=== PATIENT | male | born 1960 | race Caucasian/White ===

== ENCOUNTER → 2018-03-29 20:58 | Emergency (ER) | payer MEDICARE ==
[~2018-03-29 20:58] MED LIST: NS 0.9% 1000 ML* 2,000 ML IV ONE
[2018-03-29 22:17] LABS: ABS Basophils 0 10^3/ul (0-0.2); ABS Eosinophils 0.1 10^3/ul (0-0.6); ABS Lymphocytes 2.1 10^3/ul (1.0-4.8); ABS Monocytes 0.8 10^3/ul (0-0.8); ABS Neutrophils 9.9 10^3/ul (1.5-7.7); ABS Nucleated RBC 0 10^3/ul; Hematocrit 43 % (42-52); Hemoglobin 14.5 g/dl (14.0-18.0); Lymphocyte % 15.8 % (25-47); Mean Corpuscular HGB Conc 34 g/dl (31-36); Mean Corpuscular Hemoglobin 31 pg (27-31); Mean Corpuscular Volume 92 fL (80-94); Mean Platelet Volume 8.5 um3 (7.4-10.4); Nucleated Red Blood Cells % 0.1; Platelet Count 263 10^3/ul (150-450); Red Blood Count 4.62 10^6/ul (4.00-5.40); Red Cell Distribution Width 13 % (10.5-15)
[2018-03-29 22:28] LABS: INR 0.97 (0.77-1.02)
[2018-03-29 22:30] LABS: EGFR Non-African American 55.7 (>60)
--- NOTE | 2018-03-29 22:31 | ED ---
Syncope/Near Syncope - HPI Summary HPI Summary: This patient is a 57 year old M BIBA to [facility] after a near syncopal episode that occurred today during a parade. Pt was carrying a flag and after he walked for 15 minutes in the heat he felt weak, was diaphoretic, and leaned on a rail for support, but there was a LOC. Pt states he feels well now. The patient rates the pain 0/10 in severity. Symptoms alleviated by spontaneous resolution and rest. Patient reports dizziness and near syncope. - History Of Current Complaint Chief Complaint: EDSyncope Time Seen by Provider: 03/29/18 21:32 Hx Obtained From: Patient Onset/Duration: Lasting Minutes, Resolved Timing: Intermittent Episode Lasting Context: Witnessed Activity At Onset: Exertion Associated Head Trauma: No Alleviating Factor(s): Spontaneous Resolution Associated Signs And Symptoms: Diaphoresis, Dizzy - Allergies/Home Medications Allergies/Adverse Reactions: Allergies Allergy/AdvReac Type Severity Reaction Status Date / Time No Known Allergies Allergy Verified 10/08/16 16:20 Home Medications: Home Medications Topiramate 300 mg PO QPM 03/29/18 [History Confirmed 03/29/18] PMH/Surg Hx/FS Hx/Imm Hx Endocrine/Hematology History: Reports: Hx Thyroid Disease Cardiovascular History: Denies: Hx Coronary Artery Disease Respiratory History: Denies: Hx Chronic Obstructive Pulmonary Disease (COPD) History: Reports: Hx Kidney Stones Neurological History: Reports: Hx Seizures Psychiatric History: Reports: Hx Depression Infectious Disease History: No Infectious Disease History: Denies: Traveled Outside the [place] in Last 30 Days - Family History Known Family History: Positive: Seizure Disorder Negative: Respiratory Disease, Blood Disorder - Social History Alcohol Use: None Substance Use Type: Reports: None Smoking Status (MU): Never Smoked Tobacco Review of Systems Positive: Skin Diaphoresis Neurological: Other - dizzy Positive: Weakness, Syncope - near All Other Systems Reviewed And Are Negative: Yes Physical Exam - Summary Physical Exam Summary: VITAL SIGNS: Reviewed. GENERAL: Patient is a well-developed and nourished male who is lying comfortable in the stretcher. Patient is not in any acute respiratory distress. HEAD AND FACE: No signs of trauma. No ecchymosis, hematomas or skull depressions. No sinus tenderness. EYES: PERRLA, EOMI x 2, No injected conjunctiva, no nystagmus. EARS: Hearing grossly intact. Ear canals and tympanic membranes are within normal limits. MOUTH: Oropharynx within normal limits. NECK: Supple, trachea is midline, no adenopathy, no JVD, no carotid bruit, no c- spine tenderness, neck with full ROM. CHEST: Symmetric, no tenderness at palpation LUNGS: Clear to auscultation bilaterally. No wheezing or crackles. CVS: Regular rate and rhythm, S1 and S2 present, no murmurs or gallops appreciated. ABDOMEN: Soft, non-tender. No signs of distention. No rebound no guarding, and no masses palpated. Bowel sounds are normal. EXTREMITIES: FROM in all major joints, no edema, no cyanosis or clubbing. NEURO: Alert and oriented x 3. No acute neurological deficits. Speech is normal and follows commands. SKIN: Dry and warm Triage Information Reviewed: Yes Vital Signs On Initial Exam: Initial Vitals Pulse Resp Pulse Ox 70 24 97 03/29/18 21:06 03/29/18 21:06 03/29/18 21:06 Vital Signs Reviewed: Yes Diagnostics - Vital Signs Vital Signs Temp Pulse Resp BP Pulse Ox 03/29/18 22:07 63 13 120/68 95 03/29/18 22:00 64 18 98 03/29/18 21:38 70 12 144/78 98 03/29/18 21:15 97.3 F 66 16 119/70 97 03/29/18 21:08 68 19 119/70 96 03/29/18 21:06 70 24 97 - Laboratory Lab Results: Lab Results 03/29/18 Range/Units 22:00 WBC 13.0 H (3.5-10.8) 10^3/ul RBC 4.62 (4.00-5.40) 10^6/ul Hgb 14.5 (14.0-18.0) g/dl Hct 43 (42-52) % MCV 92 (80-94) fL MCH 31 (27-31) pg MCHC 34 (31-36) g/dl RDW 13 (10.5-15) % Plt Count 263 (150-450) 10^3/ul MPV 8.5 (7.4-10.4) um3 Neut % (Auto) 76.4 (38-83) % Lymph % (Auto) 15.8 L (25-47) % Love % (Auto) 6.5 (0-7) % Eos % (Auto) 1.0 (0-6) % Baso % (Auto) 0.3 (0-2) % Absolute Neuts (auto) 9.9 H (1.5-7.7) 10^3/ul Absolute Lymphs (auto) 2.1 (1.0-4.8) 10^3/ul Absolute Monos (auto) 0.8 (0-0.8) 10^3/ul Absolute Eos (auto) 0.1 (0-0.6) 10^3/ul Absolute Basos (auto) 0 (0-0.2) 10^3/ul Absolute Nucleated RBC 0 10^3/ul Nucleated RBC % 0.1 Result Diagrams: 03/29/18 22:00 03/29/18 22:00 Lab Statement: Any lab studies that have been ordered have been reviewed, and results considered in the medical decision making process. - EKG 22:06 Cardiac Rate: NL EKG Rhythm: Sinus Rhythm - at 63 BPM EKG Interpretation: RBBB, 1st degree AV block. Course/Dx Assessment/Plan: This patient is a 57 year old M BIBA to [facility] after a near syncopal episode that occurred today during a parade. Pt was carrying a flag and after he walked for 15 minutes in the heat he felt weak, was diaphoretic, and leaned on a rail for support, but there was a LOC. Pt states he feels well now. The patient rates the pain 0/10 in severity. Symptoms alleviated by spontaneous resolution and rest. Patient reports dizziness and near syncope. An EKG reveals sinus RBBb 1st degree AV block. Blood work obtained. Dx pre syncope heat exhaustion. In the ED course the patient was given IV fluids. Patient will be discharged and f/u with PCP. The patient is agreeable with this plan. - Diagnoses Provider Diagnoses: Pre-syncope, Heat exhaustion Discharge - Sign-Out/Discharge Documenting (check all that apply): Patient Departure - Discharge Plan Condition: Stable Disposition: HOME Patient Education Materials: Heat Exhaustion (ED), Near Syncope (ED) Referrals: German Pabon MD [Primary Care Provider] - 2 Days Additional Instructions: RETURN TO THE EMERGENCY DEPARTMENT FOR CHANGING OR WORSENING SYMPTOMS. FOLLOW UP WITH PCP IN 1-2 DAYS. - Attestation Statements Document Initiated by Scribe: Yes Documenting Scribe: Suleiman King Provider For Whom Scribe is Documenting (Include Credential): Barney Tomlinson MD Scribe Attestation: ISuleiman , scribed for Barney Tomlinson MD on 03/29/18 at 2424.
[2018-03-30 00:03] VITALS: BP 110/76
== END | disposition home or self-care (01) ==
LOC: ED 20:58
DX: R55 Syncope and collapse (principal); T67.5XXA Heat exhaustion, unspecified, initial encounter; X30.XXXA Exposure to excessive natural heat, initial encounter; Y93.01 Activity, walking, marching and hiking; Y92.9 Unspecified place or not applicable; R61 Generalized hyperhidrosis; I44.0 Atrioventricular block, first degree; R56.9 Unspecified convulsions
CPT/HCPCS: 36415; 80053; 80185; 82550; 83605; 83735; 84443; 84484; 85025; 85610; 85730; 93005; 96360; 96361; 99283

== ENCOUNTER 2018-11-02 16:08 | Emergency (ER) | payer MEDICARE ==
--- OUTSIDE RECORDS SUMMARY | 2018-11-02 16:42 | XMS REPORT | Continuity of Care Document ---
:1960 External Reference #:[id number] Author Name Amalia Barber Care Team Providers Name Role Phone Thelma Pabon M.D. 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 Ahuja MD Active complex partial seizures Family History Date Family Member(s) Observation Comments Father Cancer Father Heart Disease Mother Chronic Obstructive Pulmonary Disease (COPD) passed January 2014 Social History Type Date Description Comments Sex Unknown ETOH Use Denies alcohol use quit in the Tobacco Use Start: Unknown Patient has never smoked Smoking Status Reviewed: 10/31/18 Patient has never smoked Allergies, Adverse Reactions, Alerts Date Description Reaction Status Severity Comments 10/31/2018 Phenobarbital Active Moderate 12/23/2015 NKDA Inactive Medications Medication Date Status Form Strength Qnty SIG Indications Ordering Provider Hydrocodone 10/31/ Active Tablets 5-325mg 30tab 1 po bid R51 Chris Lopez. Bitartrate/Acet 2019 s rocio Kendall aminophen headache M.Jazmyn Vitamin D 01/14/ Active Tablets 1000Unit 180ta take 1 E55.9 Judson Garvin bs once a MD day Keppra XR 05/06/ Active Tablets ER 500mg 720ta 4 by John 2015 24HR bs mouth Jeffry Cintron twice a day Levothyroxine / Active Tablets 137mcg 1 by Unknown Sodium 0000 mouth every day Sertraline HCL / Active Tablets 50mg 1/2 tab Unknown 0000 by mouth every day Topamax / Active Tablets 100mg 135ta 1 /2 in [place] 0000 bs in the Jeffry Cintron morning by mouth , 1 tab at night Topamax / Active Tablets 200mg 180ta 1 by [place] 0000 bs mouth Jeffry Cintron twice a day Dilantin / Active Capsules 100mg 360ca 2 in in Alan 0000 ps the MD Ezra morning, 2 at at bedtime B-12 / Active Tablets 1000mcg 1 by Unknown (Methylcobalami 0000 Sub mouth n) every day Aspirin / Active Tablets 81mg 1 by Unknown 0000 mouth every day Naproxen / Active Tablets 500mg 1 by Unknown 0000 mouth twice a day Nexium / Active prn Unknown 0000 Butalbital/Acet 10/31/ Hx Capsules 50-300-40 30cap 1 by R5Jaylen Del Toro aminonorah/Caffe 2019 - mg s mouth olive Kendall 10/31/ twice a M.DRaffaele 2018 day as needed headache max 2 days/wk Keppra / Hx Tablets 500mg 720ta 4 tab by Laura Ahuja 0000 - bs jesus ESPARZA 05/06/ twice a 2015 day Immunizations Description No Information Available Vital Signs Date Vital Result Comment 10/31/2018 9:25am Height 68.5 inches 5'8.50" Weight 215.00 lb Heart Rate 74 /min BP Systolic 138 mmHg BP Diastolic 78 mmHg BMI (Body Mass Index) 32.2 kg/m2 01/14/2018 11:09am Height 68.5 inches 5'8.50" Weight 239.25 lb Heart Rate 72 /min BP Systolic 138 mmHg BP Diastolic 90 mmHg BMI (Body Mass Index) 35.8 kg/m2 12/21/2016 10:26am Height 68.5 inches 5'8.50" Weight 235.00 lb Heart Rate 72 /min BP Systolic Sitting 130 mmHg BP Diastolic Sitting 92 mmHg Respiratory Rate 17 /min BMI (Body Mass Index) 35.2 kg/m2 12/23/2015 11:04am Height 68.5 inches 5'8.50" Weight 235.00 lb Heart Rate 84 /min BP Systolic Sitting 130 mmHg BP Diastolic Sitting 84 mmHg Respiratory Rate 18 /min BMI (Body Mass Index) 35.2 kg/m2 Results Test Date Facility Test Result H/L Range Note CBC Auto Diff 12/31/2016 [facility] [facility] White Blood 9.1 10^3/uL N 3.5-10.[address] [place] [address] [phone] Red Blood Count 4.76 10^6/uL N 4.0-5.4 Hemoglobin 14.7 g/dL N 14.0-18.0 Hematocrit 45 % N 42-52 Mean Corpuscular Volume 95 fL High 80-94 Mean Corpuscular Hemoglobin 31 pg N 27-31 Mean Corpuscular HGB Conc 33 g/dL N 31-36 Red Cell Distribution Width 14 % N 10.5-15 Platelet Count 285 10^3/uL N 150-450 Mean Platelet Volume 9 um3 N 7.4-10.4 Abs Neutrophils 5.3 10^3/uL N 1.5-7.7 Abs Lymphocytes 3.0 10^3/uL N 1.0-4.8 Abs Monocytes 0.6 10^3/uL N 0-0.8 Abs Eosinophils 0.2 10^3/uL N 0-0.6 Abs Basophils 0.1 10^3/uL N 0-0.2 Abs Nucleated RBC 0 10^3/uL N Granulocyte % 58.1 % N 38-83 Lymphocyte % 33.0 % N 25-47 Monocyte % 6.4 % N 1-9 Eosinophil % 1.8 % N 0-6 Basophil % 0.7 % N 0-2 Nucleated Red Blood Cells % 0 N Laboratory test 12/31/2016 [facility] [facility] Hemoglobin A1c 5.4 % N Less than [address] (Glyco HGB) 6.0 [place] [address] [phone] Comp Metabolic 12/31/2016 [facility] Sodium 142 N 133-[address] mmol/[place] [address] [phone] Potassium 4.2 mmol/L N 3.5-5.0 Chloride 107 mmol/L N 101-111 Co2 Carbon Dioxide 25 mmol/L N 22-32 Anion Gap 10 mmol/L N 2-11 Glucose 103 mg/dL High 70-100 Blood Urea Nitrogen 12 mg/dL N 6-24 Creatinine 1.12 mg/dL N 0.67-1.17 BUN/Creatinine Ratio 10.7 N 8-20 Calcium 9.5 mg/dL N 8.6-10.3 Total Protein 7.7 g/dL N 6.4-8.9 Albumin 4.5 g/dL N 3.2-5.2 Globulin 3.2 g/dL N 2-4 Albumin/Globulin Ratio 1.4 N 1-3 Total Bilirubin 0.40 mg/dL N 0.2-1.0 Alkaline Phosphatase 114 U/L High 34-104 Alt 25 U/L N 7-52 Ast 16 U/L N 13-39 Egfr Non- 67.6 N >60 Egfr 86.9 N >60 3 Laboratory test 12/31/2016 [facility] [facility] TSH (Thyroid 5.46 mcIU/mL N 0.34-5.60 [address] Stim [place]) [place] [address] [phone] PSA Screening 1.434 ng/mL N 0-4.000 5 Vitamin D Total 25(Oh) 27.9 ng/mL Low 30-50 6 Comp Metabolic Panel 12/31/2015 [facility] Sodium 139 mmol/L N 133-[address] [place] [address] [phone] Potassium 4.2 mmol/L N 3.5-5.0 Chloride 107 mmol/L N 101-111 Co2 Carbon Dioxide 27 mmol/L N 22-32 Anion Gap 5 mmol/L N 2-11 Glucose 125 mg/dL High 70-100 Blood Urea Nitrogen 11 mg/dL N 6-24 Creatinine 1.07 mg/dL N 0.67-1.17 BUN/Creatinine Ratio 10.3 N 8-20 Calcium 9.3 mg/dL N 8.6-10.3 Total Protein 7.4 g/dL N 6.4-8.9 Albumin 4.4 g/dL N 3.2-5.2 Globulin 3.0 g/dL N 2-4 Albumin/Globulin Ratio 1.5 N 1-3 Total Bilirubin 0.30 mg/dL N 0.2-1.0 Alkaline Phosphatase 114 U/L High 34-104 Alt 33 U/L N 7-52 Ast 17 U/L N 13-39 Egfr Non- 71.5 N >60 Egfr 91.9 N >60 7 CBC Auto Diff 12/31/2015 [facility] [facility] White Blood 7.7 10^3/uL N 3.5-10.[address] [place] [address] [phone] Red Blood Count 4.69 10^6/uL N 4.0-5.4 Hemoglobin 14.7 g/dL N 14.0-18.0 Hematocrit 44 % N 42-52 Mean Corpuscular Volume 93 fL N 80-94 Mean Corpuscular Hemoglobin 31 pg N 27-31 Mean Corpuscular HGB Conc 34 g/dL N 31-36 Red Cell Distribution Width 13 % N 10.5-15 Platelet Count 263 10^3/uL N 150-450 Mean Platelet Volume 9 um3 N 7.4-10.4 Abs Neutrophils 4.6 10^3/uL N 1.5-7.7 Abs Lymphocytes 2.4 10^3/uL N 1.0-4.8 Abs Monocytes 0.5 10^3/uL N 0-0.8 Abs Eosinophils 0.1 10^3/uL N 0-0.6 Abs Basophils 0.1 10^3/uL N 0-0.2 Abs Nucleated RBC 0.01 10^3/uL N Granulocyte % 60.4 % N 38-83 Lymphocyte % 30.9 % N 25-47 Monocyte % 6.1 % N 1-9 Eosinophil % 1.9 % N 0-6 Basophil % 0.7 % N 0-2 Nucleated Red Blood Cells % 0.1 N Laboratory test 12/31/2015 [facility] [facility] Phenytoin 9.2 g/mL Low 10-[address] (Dilantin) [place] [address] [phone] Levetiracetam (Keppra) 30.2 g/mL N 9 Topomax (Topiramate) 8.0 g/mL N 2.0 - 8.0 10 Lipid Profile 12/31/2015 [facility] [facility] Triglycerides 336 mg/dL N 11 (Trig/Chol/HDL) [address] [place] [address] [phone] Cholesterol 206 mg/dL N 12 HDL Cholesterol 31.5 mg/dL N 13 LDL Cholesterol 107 mg/dL N 14 1 [id number] 2 Therapeutic target for the treatment of diabetes Mellitus patients is <7% HBA1C, and in selective patients <6.0%.Please refer to [place] [employer] Association Diabetic care guidelines for further information. 3 Because ethnic data is not always readily available, this report includes an eGFR for both -Americans and non- Americans. The National Kidney Disease Education Program (NKDEP) does not endorse the use of the MDRD equation for patients that are not between the ages of 18 and 70, are , have extremes of body size, muscle mass, or nutritional status, or are non- or non-. According to the National Kidney Foundation, irrespective of diagnosis, the stage of the disease is based on the level of kidney function: Stage Description GFR(mL/min/1.73 m(2)) 1 Kidney damage with normal or decreased GFR 90 2 Kidney damage with mild decrease in GFR 60-89 3 Moderate decrease in GFR 30-59 4 Severe decrease in GFR 15-29 5 Kidney failure <15 (or dialysis) 4 [id number] 5 Serum levels of PSA measured using the [employer] DXI Hybritech immunoassay should not be interpreted as absolute evidence of the presence or absence of disease. The PSA value should be used in conjunction with other pertinent clinical diagnostic procedures. The values obtained with different assay methods or kits cannot be used interchangeably. 6 [id number] 7 Because ethnic data is not always readily available, this report includes an eGFR for both -Americans and non- Americans. The National Kidney Disease Education Program (NKDEP) does not endorse the use of the MDRD equation for patients that are not between the ages of 18 and 70, are , have extremes of body size, muscle mass, or nutritional status, or are non- or non-. According to the National Kidney Foundation, irrespective of diagnosis, the stage of the disease is based on the level of kidney function: Stage Description GFR(mL/min/1.73 m(2)) 1 Kidney damage with normal or decreased GFR 90 2 Kidney damage with mild decrease in GFR 60-89 3 Moderate decrease in GFR 30-59 4 Severe decrease in GFR 15-29 5 Kidney failure <15 (or dialysis) 8 Draw prior to AM dose of medication Copy Result to: THELMA PABON ([id number]) FASTING 9 REFERENCE VALUE 12.0 - 46.0 Test Performed by: [facility] [place] [id number] [employer] Sales Representative: Cosmo Evans II, M.D., Ph.D. 10 Test Performed by: [facility] - [address] [address] [employer] Sales Representative: Cosmo Evans II, M.D., Ph.D. 11 Desirable <150 Borderline high 150-199 High 200-499 Very High >500 12 Desirable <200 Borderline high 200-239 High >239 13 Low <40 Desirable: 40-60 High: >60 14 Desirable: <100 mg/dL Near Optimal: 100-129 mg/dL Borderline High: 130-159 mg/dL High: 160-189 mg/dL Very High: >189 mg/dL Procedures Date Code Description Status 12/31/2015 01019 EEG Recording Awake & Drowsy Completed Encounters Type Date Location Provider Dx Diagnosis Office Visit 01/14/2018 [facility] Laura Ahuja MD G40.219 Local-rel 11:00a symptc epi w cmplx part seiz, ntrct, w/o stat epi E55.9 Vitamin D deficiency, unspecified Office Visit 12/21/2016 [facility] Laura Ahuja MD G40.219 Local- rel symptc 10:30a [employer] epi w cmplx part seiz, ntrct, w/o stat epi Office Visit 12/23/2015 [facility] Laura Ahuja MD G40.219 Local- rel symptc 11:00a [employer] epi w cmplx part seiz, ntrct, w/o stat epi [facility] Poisoning By 3:00a ulises Boss M.D. [facility] Office Visit 11/23/2008 [facility] Vernon Jack, 966.1 Poisoning By 2:45a ulises Boss M.D. [facility] Office Visit 11/22/2008 [facility] Mandy RamirezKaterin, 966.1 Poisoning By 2:15a [employer],ulises Teran [facility] Office Visit 11/21/2008 [facility] Mandy RamirezKaterin, 966.1 Poisoning By 2:00a ulises Boss M.D. [facility] Office Visit 11/20/2008 [facility] Mandy RamirezKaterin, 966.1 Poisoning By 3:15a ulises Boss M.D. [facility] Office Visit 11/19/2008 [facility] Magaly Conroy, 966.1 Poisoning By 1:15a ulises Boss M.D. [facility] Plan of Treatment Future Appointment(s):11/18/2018 4:00 pm - [facility] [id number]/31/2018 - Chris Kendall M.D.R51 HeadacheNew Medication:Hydrocodone Bitartrate/Acetaminophen 5-325 mg - 1 po bid prn headacheButalbital/Acetaminophen/Caffeine 50-300-40 mg - 1 by mouth twice a day as needed headache max 2 days/wkNew Xrays:Mra Head W/O, Ordered: 10/31/18MRI Brain W/Wo, Ordered: 10/31/18Follow up:get CT brain report and lab results from Pipo GONGORA and Dr. Pabon 2 wks after MRI'sG40.219 Localization-related (focal ) (partial) symptomatic donphjppM08.01 Abnormal electroencephalogram [EEG]
--- NOTE | 2018-11-02 17:03 | ED ---
Headache - HPI Summary HPI Summary: A 58 y/o M presents to ED with c/o frontal JIMENEZ that radiates across his head that has been ongoing for the past 4 weeks. They wake him from sleep and are worse in the morning. The JIMENEZ eases up during the day but is always present. Associated sx: abd pain, recent weight loss, UE weakness described as feeling like rubber bands. Denies vision changes. He has been evaluated at [facility], and by Dr. Kendall, neuro. Nothing is alleviating the pain. He denies PMHx of migraines, JIMENEZ, HTN, DM. PMHx: epilepsy as a child. He got new glasses last week. No longer drinks ETOH and was never a heavy drinker. Pt lives alone in a trailer. He has a monoxide monitor. - History Of Current Complaint Chief Complaint: EDHeadache Stated Complaint: HEADACHE, ABD PAIN PER PT Time Seen by Provider: 11/02/18 17:02 Hx Obtained From: Patient Onset/Duration: Started weeks ago, Still Present Currently Pain Is: Current Pain Scale(0-10)= - 9 out of 10 Timing: Constant Location of Headache: Frontal Radiates to: rest of head Associated Signs And Symptoms: Other (Noted In Comments) - pos: abd pain, recent weight loss, UE weakness. neg: vision changes - Allergies/Home Medications Allergies/Adverse Reactions: Allergies Allergy/AdvReac Type Severity Reaction Status Date / Time phenobarbital Allergy WARM Verified 11/04/18 17:23 BUTTOCKS PMH/Surg Hx/FS Hx/Imm Hx Previously Healthy: No Endocrine/Hematology History: Reports: Hx Thyroid Disease Denies: Hx Diabetes Cardiovascular History: Denies: Hx Coronary Artery Disease, Hx Hypertension, Hx Pacemaker/ICD Respiratory History: Denies: Hx Chronic Obstructive Pulmonary Disease (COPD) History: Reports: Hx Kidney Stones Denies: Hx Renal Disease Sensory History: Denies: Hx Hearing Aid Neurological History: Reports: Hx Seizures Psychiatric History: Reports: Hx Depression Denies: Hx Panic Disorder - Surgical History Surgery Procedure, Year, and Place: head sx when AGE 20-CYST DRAINED Infectious Disease History: No Infectious Disease History: Denies: Traveled Outside the [place] in Last 30 Days - Family History Known Family History: Positive: Seizure Disorder Negative: Respiratory Disease, Blood Disorder - Social History Occupation: Unemployed Lives: Alone Alcohol Use: None Hx Substance Use: No Substance Use Type: Reports: None Hx Tobacco Use: No Smoking Status (MU): Never Smoked Tobacco Review of Systems Positive: Other - pos: recent weight loss Positive: Abdominal Pain Positive: Headache, Weakness - UE bilat All Other Systems Reviewed And Are Negative: Yes Physical Exam - Summary Physical Exam Summary: Appearance: Well-appearing, Well-nourished, lying in bed comfortably Skin: Warm, dry, no obvious rash Eyes: sclera anicteric, no conjunctival pallor ENT: mucous membranes moist, pharynx appears normal Neck: Supple, nontender Respiratory: Clear to auscultation, no signs of respiratory distress Cardiovascular: Normal S1, S2. No murmurs. Normal distal pulses in tibial and radial bilaterally. Abdomen: Soft, nontender, normal active bowel sounds present Musculoskeletal: Normal, Strength/ROM Intact Neurological: A&Ox3, awake and alert, mentation is normal, speech is fluent and appropriate Psychiatric: affect is normal, does not appear anxious or depressed Triage Information Reviewed: Yes Vital Signs On Initial Exam: Initial Vitals Temp Pulse Resp BP Pulse Ox 98.1 F 74 16 126/88 98 11/02/18 16:25 11/02/18 16:25 11/02/18 16:25 11/02/18 16:25 11/02/18 16:25 Vital Signs Reviewed: Yes Diagnostics - Vital Signs Vital Signs Temp Pulse Resp BP Pulse Ox 11/02/18 16:25 98.1 F 74 16 126/88 98 - Laboratory Lab Statement: Any lab studies that have been ordered have been reviewed, and results considered in the medical decision making process. Re-Evaluation - Re-Evaluation 1 Re-Evaluation Time: 17:30 Headache Course/Dx - Course Course Of Treatment: Pt is a 58 y/o M present with frontal JIMENEZ that radiates across his head that has been ongoing for the past 4 weeks. They wake him from sleep and are worse in the morning. Will discharge pt home. - Diagnoses Differential Diagnosis/HQI/PQRI: CO2 Poisoning, Subdural Hematoma, Subarachnoid Hemorrhage, Tension Headache Provider Diagnoses: Chronic headache - Physician Notifications Discussed Care Of Patient With: Chris Kendall - neuro Time Discussed With Above Provider: 17:22 Instructed by Provider To: Other - Discussed case, recommends pain management Discharge - Sign-Out/Discharge Documenting (check all that apply): Patient Departure - DC Patient Received Moderate/Deep Sedation with Procedure: No - Discharge Plan Condition: Good Disposition: HOME Prescriptions: Naproxen [Naprosyn 500 mg tab] 500 mg PO BEDTIME #20 tablet Patient Education Materials: Tension Headache (ED) Referrals: Chris Kendall MD [Medical Doctor] - (as scheduled) Additional Instructions: Your MR scans were normal per the radiologist, which rules out structural problems like tumors, infections or inflammation in the brain. 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 - Billing Disposition and Condition Condition: GOOD Disposition: Home - Attestation Statements Document Initiated by Valenteibe: Yes Documenting Scribe: Juan Dobbins Provider For Whom Silvia is Documenting (Include Credential): Dr. Emre Torres MD Scribe Attestation: Juan Chaudhary, scribed for Dr. Emre Torres MD on 11/05/18 at 0637. Scribe Documentation Reviewed: Yes Provider Attestation: The documentation as recorded by the Juan reeves accurately reflects the service I personally performed and the decisions made by me, Dr. Emre Torres MD Status of Scribe Document: Viewed
[2018-11-02 19:45] VITALS: BP 126/88
== END 2018-11-02 19:43 | disposition home or self-care (01) ==
LOC: ED 16:08
DX: R51 Headache (principal); G89.29 Other chronic pain; E07.9 Disorder of thyroid, unspecified; Z88.8 Allergy status to other drugs, medicaments and biological substances; Z87.442 Personal history of urinary calculi; G93.89 Other specified disorders of brain; J32.9 Chronic sinusitis, unspecified; D33.0 Benign neoplasm of brain, supratentorial
CPT/HCPCS: 70544; 70553; 99282; A9579

== ENCOUNTER 2018-11-04 17:13 | Emergency (ER) | payer MEDICARE ==
[2018-11-04] MEDS ORDERED: PROCHLORPERAZINE INJ 5 MG/ML 2 ML VIAL IV ONE (19:42)
[2018-11-04] MEDS ORDERED: Ketorolac INJ* 30 MG/ML 1 ML VIAL IV PUSH ONE (19:42)
[2018-11-04] MEDS ORDERED: NS 0.9% 1000 ML** 2,000 ML IV ONE (19:43)
[2018-11-04] MEDS ORDERED: diPHENhydraMINE IV* 50 MG/ML 1 ml VIAL (BENADRYL) IV ONE (19:43)
--- NOTE | 2018-11-04 19:48 | ED ---
Headache - HPI Summary HPI Summary: The patient is a 58 y/o M presenting to [facility] with a chief complaint of excruciating headache starting this morning at 0200. He states that the headache had a sudden onset in the bilateral frontal region and has gradually gotten worse throughout the day. He has a prescription from Dr. Kendall, neurology, for Sumatriptan and Zofran for chronic headaches; the medications seemed to mildly alleviate the pain, but he wasn't able to take them until 1200. Since then, he has also experienced diffuse abd soreness that is only present with the headache. There is associated nausea without vomiting. The pain was also aggravated by sitting passenger in the car on this way to the ED. Currently, the sharp pain is rated 9/10 in severity. He denies past abd surgeries. Last seen here two days ago with negative MRI scan. - History Of Current Complaint Chief Complaint: EDGeneral Stated Complaint: HEAD AND ABD PAIN PER PT Time Seen by Provider: 11/04/18 19:37 Hx Obtained From: Patient Onset/Duration: Sudden Onset, Started hours ago - at 0200 this morning, Still Present Initially Headache Was: Mild Currently Pain Is: Current Pain Scale(0-10)= - 9, Severe Timing: Hours Character: Sharp Location of Headache: Frontal - bilateral Aggravating Factor: Other - driving in car Allevating Factors: Medication - Sumatriptan and Zofran Associated Signs And Symptoms: Nausea, Other (Noted In Comments) - POSITIVE: diffuse abd soreness; NEGATIVE: vomiting - Allergies/Home Medications Allergies/Adverse Reactions: Allergies Allergy/AdvReac Type Severity Reaction Status Date / Time phenobarbital Allergy WARM Verified 11/04/18 17:23 BUTTOCKS Home Medications: Home Medications Ondansetron ODT TAB* [Zofran 4 MG Odt TAB*] 4 mg PO Q8H PRN 11/04/18 [History Confirmed 11/04/18] SUMAtriptan TAB* [Imitrex TAB*] 100 mg PO SEE INSTRUCTIONS 11/04/18 [History Confirmed 11/04/18] Topiramate TAB(*) [Topamax 100 mg tab] 300 mg PO BEDTIME 11/04/18 [History Confirmed 11/04/18] PMH/Surg Hx/FS Hx/Imm Hx Endocrine/Hematology History: Reports: Hx Thyroid Disease Denies: Hx Diabetes Cardiovascular History: Denies: Hx Coronary Artery Disease, Hx Hypertension, Hx Pacemaker/ICD Respiratory History: Denies: Hx Chronic Obstructive Pulmonary Disease (COPD) History: Reports: Hx Kidney Stones Denies: Hx Renal Disease Sensory History: Denies: Hx Hearing Aid Neurological History: Reports: Hx Seizures Psychiatric History: Reports: Hx Depression Denies: Hx Panic Disorder - Surgical History Surgery Procedure, Year, and Place: head sx when AGE 20-CYST DRAINED Infectious Disease History: No Infectious Disease History: Denies: Traveled Outside the [place] in Last 30 Days - Family History Known Family History: Positive: Seizure Disorder Negative: Respiratory Disease, Blood Disorder - Social History Alcohol Use: None Hx Substance Use: No Substance Use Type: Reports: None Hx Tobacco Use: No Smoking Status (MU): Never Smoked Tobacco Review of Systems Positive: Abdominal Pain - diffuse soreness onset with headaches, Nausea. Negative: Vomiting Positive: Headache - "excruciating", bilateral frontal All Other Systems Reviewed And Are Negative: Yes Physical Exam - Summary Physical Exam Summary: Appearance: Well-appearing, Well-nourished, lying in bed comfortably Skin: Warm, dry, no obvious rash Eyes: sclera anicteric, no conjunctival pallor ENT: mucous membranes moist, pharynx appears normal Neck: Supple, nontender Respiratory: Clear to auscultation, no signs of respiratory distress Cardiovascular: Normal S1, S2. No murmurs. Normal distal pulses in tibial and radial bilaterally. Abdomen: Soft, nontender, normal active bowel sounds present Musculoskeletal: Normal, Strength/ROM Intact Neurological: A&Ox3, awake and alert, mentation is normal, speech is fluent and appropriate Psychiatric: affect is normal, does not appear anxious or depressed Triage Information Reviewed: Yes Vital Signs On Initial Exam: Initial Vitals Temp Pulse Resp BP Pulse Ox 97.3 F 69 16 129/79 96 11/04/18 17:18 11/04/18 17:18 11/04/18 17:18 11/04/18 17:18 11/04/18 17:18 Vital Signs Reviewed: Yes Diagnostics - Vital Signs Vital Signs Temp Pulse Resp BP Pulse Ox 11/04/18 18:29 97.8 F 72 16 133/76 95 11/04/18 17:18 97.3 F 69 16 129/79 96 - Laboratory Result Diagrams: 11/04/18 19:53 11/04/18 19:53 Lab Statement: Any lab studies that have been ordered have been reviewed, and results considered in the medical decision making process. Re-Evaluation - Re-Evaluation First Eval Re-Evaluation Time: 22:00 Change: Improved Comment: I spoke with the patient concerning discharge after workup has been completed. He agrees with this plan as he feels better now. Headache Course/Dx - Course Course Of Treatment: The patient is a 58 y/o M with a chief complaint of excruciating frontal headache with sudden onset this morning at 0200 with gradual worsening throughout the day. He took Sumatriptan and Zofran at 1200 to mild relief. He additionally c/o diffuse abd soreness and nausea without vomiting associated with the headache. No abd surgical hx. Upon physical exam, the patient exhibits no acute abnormalities. In the ED course, the patient was administered Ns, Benadryl, Compazine, and Toradol. Blood work reveals slightly elevated MCH, chloride, and glucose but is otherwise normal; hemolyzed potassium. UA not obtained. The patient is diagnosed with acute headache. He will be discharged home with prescription for Compazine, instructions for Sumatriptan use, and follow up with Dr. Kendall as needed. He agrees with this plan and understands the need for return to the ED for any new or worsening symptoms. - Diagnoses Provider Diagnoses: Acute headache Discharge - Sign-Out/Discharge Documenting (check all that apply): Patient Departure - Patient will be discharged home. Patient Received Moderate/Deep Sedation with Procedure: No - Discharge Plan Condition: Good Disposition: HOME Prescriptions: Prochlorperazine TAB* [Compazine Tab*] 10 mg PO Q6H PRN #20 tab PRN Reason: Headache Patient Education Materials: Acute Headache (ED) Referrals: Chris Kendall MD [Medical Doctor] - (as scheduled) Additional Instructions: The sumatriptan works best the earlier in the course of a headache it is taken. If that proves ineffective, take the compazine next. [facility] should be able to help you with an acute intractable headache if that is more convenient for you than coming [place] [facility] Follow up with your primary care provider in 2-3 days. RETURN TO THE EMERGENCY DEPARTMENT FOR ANY NEW OR WORSENING SYMPTOMS. - Billing Disposition and Condition Condition: GOOD Disposition: Home - Attestation Statements Document Initiated by Scribe: Yes Documenting Scribe: Kim Garcia Provider For Whom Valenteiblloyd is Documenting (Include Credential): Dr. Emre Torres MD Scribe Attestation: I, chris Mcdermotted for Dr. Emre Torres MD on 11/05/18 at 0650. Scribe Documentation Reviewed: Yes Provider Attestation: The documentation as recorded by the Kim reeves accurately reflects the service I personally performed and the decisions made by me, Dr. Emre Torres MD Status of Scribe Document: Viewed
[2018-11-04 20:00] LABS: ABS Basophils 0.1 10^3/ul (0-0.2); ABS Eosinophils 0.2 10^3/ul (0-0.6); ABS Monocytes 0.6 10^3/ul (0-0.8); ABS Neutrophils 5.6 10^3/ul (1.5-7.7); ABS Nucleated RBC 0 10^3/ul; Eosinophil % 2.5 %; Hematocrit 40 % (36-46); Hemoglobin 14.1 g/dL (14.0-18.0); Lymphocyte % 31.7 %; Mean Corpuscular HGB Conc 35 g/dL (31-36); Mean Corpuscular Hemoglobin 32 pg (27-31); Mean Corpuscular Volume 92 fL (80-94); Mean Platelet Volume 8.3 fL (7.4-10.4); Nucleated Red Blood Cells % 0; Platelet Count 279 10^3/uL (150-450); Red Blood Count 4.35 10^6 /uL (4.18-5.48); Red Cell Distribution Width 13 % (10.5-15); White Blood Count 9.5 10^3/uL (3.5-10.8)
[2018-11-04 20:18] LABS: ALT 18 U/L (7-52); Albumin 4.2 g/dL (3.2-5.2); Albumin/Globulin Ratio 1.4 (1-3); Alkaline Phosphatase 73 U/L (34-104); BUN/Creatinine Ratio 16.1 (8-20); Blood Urea Nitrogen 15 mg/dL (6-24); CO2 Carbon Dioxide 24 mmol/L (22-32); Calcium 9.2 mg/dL (8.6-10.3); EGFR African American 100.6 (>60); EGFR Non-African American 83.2 (>60); Globulin 2.9 g/dL (2-4); Glucose 109 mg/dL (70-100); Sodium 142 mmol/L (135-145); Total Protein 7.1 g/dL (6.4-8.9)
[2018-11-04 20:29] LABS: Chloride 112 mmol/L (101-111)
[2018-11-04 21:03] LABS: Anion Gap 6 mmol/L (2-11)
[2018-11-04 22:27] VITALS: BP 135/71
[2018-11-04 22:38] LABS: Urine Appearance Clear; Urine Bacteria Absent (Absent); Urine Bilirubin Negative (Negative); Urine Blood 1+ (Negative); Urine Color Yellow; Urine Glucose Negative (Negative); Urine Ketones Negative (Negative); Urine Nitrite Negative (Negative); Urine Protein Negative (Negative); Urine Red Blood Cell 1+(3-5/hpf) (Absent); Urine Squamous Epithelial Cell Present (Absent); Urine Urobilinogen Negative (Negative); Urine White Blood Cell 1+(6-10/hpf) (Absent)
== END 2018-11-04 22:29 | disposition home or self-care (01) ==
LOC: ED 17:13
DX: R51 Headache (principal); E07.9 Disorder of thyroid, unspecified
CPT/HCPCS: 36415; 80053; 81003; 81015; 83690; 85025; 87086; 96361; 96374; 96375; 99283; J0780; J1200; J1885